=== PATIENT | female | born 1950 | race Caucasian/White ===

== ENCOUNTER 2017-03-21 17:22 | Emergency (ER) | payer MEDICARE, OTHER ==
[~2017-03-21] VITALS: Ht 167.6 cm; Wt 117.9 kg
--- NOTE | ~2017-03-21 | CR252 ---
[facility] A Service of [facility] RADIOLOGY TEXT RESULTS PATIENT: LUCI MCDANIEL LOCATION: [facility] : 50 UNIT #: [id number] AGE: [address]: Chucho Akers MD SEX: F ORDER DR: [id number] [facility] [address] [place], [place] [address] [id number] E MR#: [id number] Acc #: [id number] NAME: LUCI MCDANIEL : 1950 SEX: F STUDY DATE/TIME: 03/21/2017 UNIT: [facility] ROOM: STUDY DESCRIPTION: CR Tibia and Fibula 2 Views Lt Attending Physician: Chucho Akers Referring Physician: Primary Care Physician No Ordering Physician: Rohit Akers M.D. Primary Care Physician: Primary Care Physician No MEDICAL IMAGING REPORT This report is preliminary unless electronic signature is present EXAM Left tib-fib 03/21 at 21:50 INDICATIONS Lower leg pain after fall at 12:30 this afternoon. Bruising. FINDINGS AP and lateral views of the left lower leg were obtained. Patient is status post left knee arthroplasty. Hardware is unremarkable. Findings are highly suspicious for a nondisplaced fracture of the proximal fibula. The remainder of the lower leg is within normal limits. IMPRESSION Findings are concerning for a nondisplaced proximal fibular fracture. Patient has a well-positioned knee arthroplasty. No other fractures are seen. Dictated by... Zachariah Coronel Jr., M.D. THIS IS AN ELECTRONICALLY VERIFIED REPORT Zachariah Coronel Jr., M.D. at 03/22/2017 9:33 PM ITALIA/noah TD: 03/22/2017 08:46 JOB #: [id number] MEDICAL IMAGING REPORT Page 1 of 1 COPY
--- NOTE | ~2017-03-21 | CR229 ---
[facility] A Service of [facility] & [facility] RADIOLOGY TEXT RESULTS PATIENT: LUCI MCDANIEL LOCATION: [facility] : 50 UNIT #: [id number] AGE: [address]: Chucho Akers MD SEX: F ORDER DR: [id number] [facility] [address] [place], [place] [address] [id number] E MR#: [id number] Acc #: [id number] NAME: LUCI MCDANIEL : 1950 SEX: F STUDY DATE/TIME: 03/21/2017 21:45 UNIT: [facility] ROOM: STUDY DESCRIPTION: CR Shoulder Min 2 View Lt Attending Physician: Rohit Akers M.D. Referring Physician: No Primary Care Physician Ordering Physician: Rohit Akers M.D. Primary Care Physician: No Primary Care Physician MEDICAL IMAGING REPORT This report is preliminary unless electronic signature is present EXAM Left shoulder 03/21 2145 hours. INDICATIONS Shoulder pain after a fall today at 12:30 this afternoon. FINDINGS Three views of the left shoulder were obtained. There is a fracture of the proximal humerus across the surgical neck. The fracture extends into the greater tuberosity. There is severe glenohumeral arthropathy with deformity of the bony glenoid and the humeral head articular surface. Given this appearance, I cannot exclude the possibility of a fracture through the bony glenoid. No dislocation is seen. There is AC joint arthropathy. Loose body may be present in the subacromial/subdeltoid bursa. IMPRESSION Essentially nondisplaced fracture across the surgical neck of the proximal humerus. It extends up to involve the lower portion of the greater tuberosity. Also noted is severe glenohumeral arthropathy. Given the extensive spur formation, I cannot exclude the possibility of fracture across the base of the bony glenoid. No dislocation. Dictated by... Zachariah Coronel Jr., M.D. THIS IS AN ELECTRONICALLY VERIFIED REPORT Zachariah Coronel Jr., M.D. at 03/22/2017 9:33 PM ITALIA/tasha TD: 03/22/2017 08:48 JOB #: [id number] [facility] A Service of [facility] RADIOLOGY TEXT RESULTS PATIENT: LUCI MCDANIEL LOCATION: [facility] #: [id number] : 50 UNIT #: [id number] AGE: [address]: Chucho Akers MD SEX: F ORDER DR: MEDICAL IMAGING REPORT Page 1 of 1 COPY
--- NOTE | ~2017-03-21 | CR172 ---
[facility] A Service of [facility] & [facility] RADIOLOGY TEXT RESULTS PATIENT: LUCI MCDANIEL LOCATION: [facility] : 50 UNIT #: [id number] AGE: [address]: Chucho Akers MD SEX: F ORDER DR: [id number] [facility] [address] [place], [place] [address] [id number] E MR#: [id number] Acc #: [id number] NAME: LUCI MCDANIEL : 1950 SEX: F STUDY DATE/TIME: 03/21/2017 UNIT: [facility] ROOM: STUDY DESCRIPTION: CR Knee 3 Views Lt Attending Physician: Chucho Akers Referring Physician: Primary Care Physician No Ordering Physician: Rohit Akers M.D. Primary Care Physician: Primary Care Physician No MEDICAL IMAGING REPORT This report is preliminary unless electronic signature is present EXAM Left knee 03/21 21:48 INDICATIONS Knee pain and bruising after fall today at 12:30 p.m. FINDINGS Three 3 views of the left knee were obtained. Patient is status post arthroplasty. Hardware shows normal alignment. No acute fractures are identified and there is no joint effusion. A tib-fib films from today showed a probable nondisplaced proximal fibular fracture. Is not clearly identifiable on these images. IMPRESSION Arthroplasty hardware is intact. There is no joint effusion and there is no fractures seen. Tib-fib films from today however, did suggest a left proximal fibular fracture. This is still present but not definitely visualized on these images. Dictated by... Zachariah Coronel Jr., M.D. THIS IS AN ELECTRONICALLY VERIFIED REPORT Zachariah Coronel Jr., M.D. at 03/22/2017 9:33 PM ITALIA/noah TD: 03/22/2017 08:56 JOB #: [id number] MEDICAL IMAGING REPORT Page 1 of 1 COPY
[~2017-03-21 17:22] MED LIST: ACETAMINOPHEN PO; BLOOD PRESSURE MED?; IBUPROFEN800 MG PO; NEURONTIN; SEROQUEL PO; [UNRECOGNIZED DRUG - REMARK]
== END 2017-03-22 | disposition home or self-care (01) ==
LOC: CED 17:22
DX: S42.215A Unspecified nondisplaced fracture of surgical neck of left humerus, initial encounter for closed fracture (principal); S89.92XA Unspecified injury of left lower leg, initial encounter; I10 Essential (primary) hypertension; F79 Unspecified intellectual disabilities; Z79.899 Other long term (current) drug therapy; W01.0XXA Fall on same level from slipping, tripping and stumbling without subsequent striking against object, initial encounter; Y92.009 Unspecified place in unspecified non-institutional (private) residence as the place of occurrence of the external cause
CPT/HCPCS: 29530; 73030; 73562; 73590; 99283